=== PATIENT | female | born 1965 | race Caucasian/White ===

== ENCOUNTER 2019-07-14 13:08 | Emergency (ER) | payer OTHER, SELFPAY ==
[2019-07-14 13:16] VITALS: BP 118/71; PULSE 63; RESP 16; TEMP 36.4; O2SAT 100
--- NOTE | 2019-07-14 14:29 | ED.GENADULT ---
HPI - General Adult General Chief complaint: Upper Respiratory Infection Stated complaint: sinus issues Time Seen by Provider: 07/14/19 14:29 Source: patient and RN notes reviewed Mode of arrival: ambulatory Limitations: no limitations History of Present Illness HPI narrative: 54-year-old female presents with complaints of upper respiratory infection, facial congestion, facial pain, cough, and intermittent headaches (not the worst of her life) for the past 14 days. Tylenol cold and sinus with little relief. No facial swelling. Dry cough and intermittent productive cough (yellow phlegm). Nasal congestion and rhinorrhea. No chest pain or shortness of breath. No exacerbating factors. Denies fever or chills. Denies nausea, vomiting, and abdominal pain. Tolerating po intake well. Remains active. Some parts of this dictation were generated by voice recognition software and may contain typographical and/or grammatical inaccuracies. Related Data Home Medications Medication Instructions Recorded Confirmed levothyroxine [Synthroid] 07/14/19 spironolactone 07/14/19 Allergies Allergy/AdvReac Type Severity Reaction Status Date / Time No Known Allergies Allergy Unknown Unverified 07/16/16 12:23 Review of Systems Review of Systems: Narrative: CONSTITUTIONAL: Denies fever, chills, sweats. EYES: Denies visual changes, redness, discharge. ENT: Complains of rhinorrhea, congestion. Denies otalgia, sore throat. CARDIOVASCULAR: Denies chest pain, palpitations, edema. RESPIRATORY: Denies dyspnea, wheezing. Complains of dry cough, intermittent productive. GASTROINTESTINAL: Denies abdominal pain, nausea, vomiting, diarrhea. GENITOURINARY: Denies dysuria, hematuria, abnormal discharge. SKIN: Denies rash or itching. MUSCULOSKELETAL: Denies acute back pain, joint pain, or myalgia. NEUROLOGIC: Denies numbness or focal weakness. Complains of intermittent FOSS. PSYCHIATRIC: Denies anxiety or depression. All systems reviewed & are unremarkable except as noted in HPI and below. [facility] Past Medical History Medical History (Updated 07/15/19 @ 00:00 by Yumiko Daley) Hypothyroidism Menopause Surgical History Surgical History (Updated 07/14/19 @ 14:39 by RAYRAY Garzon) History of cholecystectomy Family History Family History (Updated 07/14/19 @ 14:39 by RAYRYA Garzon) Father Hypertension Social History Social History (Updated 07/14/19 @ 14:40 by RAYRAY Garzon) Smoking status: Never smoker Second hand tobacco smoke exposure: No Alcohol intake: never Substance use: never Living arrangements: with family Occupation/Education: occupation 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 There is no relevant family history pertinent to the presenting complaint. Exam Narrative: Exam Narrative: GENERAL: This is a well-nourished, well-developed patient, in no apparent distress. Talks in full sentences and ambulates with steady gait without dyspnea. HEAD: normocephalic, atraumatic. EYES: PERRL. Sclera clear/white. Vision is grossly intact. EARS: External ears normal, auditory canals clear and without drainage, TMs normal without perforation. Hearing grossly intact. NOSE: External nose normal with no obvious nasal discharge, nares with moderate redness and enlarged turbinates, clear rhinorrhea. SINUSES: Moderate tenderness upon palpation to maxillary sinus. THROAT: Mucous membranes moist, posterior pharynx with PND, mild erythema, no exudate, and normal tonsils. No drainage, no concern for Peritonsillar abscess. No drooling, trismus, or neck swelling. NECK: Neck supple, non-tender without lymphadenopathy, masses or thyromegaly. CARDIOVASCULAR: Regular rate and rhythm without murmurs, gallop
== END 2019-07-14 14:44 | disposition home or self-care (01) ==
PROVIDERS: Emergency Provider Nurse Practitioner Family
DX: J01.00 Acute maxillary sinusitis, unspecified (principal); E03.9 Hypothyroidism, unspecified
CPT/HCPCS: 99213; G0463

== ENCOUNTER 2024-08-14 13:00 | Outpatient (RCR) | payer OTHER, SELFPAY ==
--- NOTE | 2024-05-21 18:10 | BUSTOPEVAL1 ---
Assessment and note entered by Citlaly Garza, [employer] Evaluation Information Assessment Status Evaluation Diagnosis Brain Tumor D49.6 Other ICD-10 Condition Codes ( R41.841 Cognitive-communication deficits ST) Subjective Information Patient was referred for a skilled ST evaluation due to increased difficulty with memory along with a brain tumor found resulting in a craniotomy in April of 2024. Post craniotomy the patient was transferred to [facility] and was there for around one week. While there she participated in speech therapy and they were addressing attention, comprehension, repetition, naming, memory, calculations, similarities/ differences and judgement with current cognitive status determined as moderate-severely impaired. The patient was then living with her family but recently was moved to an assisted living facility due to safety problems. Patient was then referred for an outpatient skilled ST evaluation due to ongoing difficulties in various cognitive- communication areas impacting patient's overall abilities to complete daily activities safely along with overall communication abilities. Patient and son reported that they have noticed changes in cognitive skills for the past 6 months. The Mini Mental State Examination (MMSE) was administered during the evaluation along with the use of the [facility] Adult Language Evaluation. Concerns were noted within areas of auditory comprehension, reading comprehension, verbal expression along with a score of 18/30 on the MMSE indicating a moderate degree of impairment. Results are below. Reported Pain Level Pain Score 0: Self Report Assessment ST Clinical Summary Patient was referred for a skilled ST evaluation due to continued difficulties with cognitive- communication skills post craniotomy due to a brain tumor. The patient's son also reported that over the past 6 months the patient has been presenting with a cognitive decline and was also diagnosed with Alzheimer's. Post craniotomy the patient was admitted to [facility] for 1 week and then transferred home with family. She recently moved to an assisted living facility due to safety concerns with elopement and medication management. Throughout the evaluation the patient presented with word retrieval difficulties, immediate and delayed memory impairments, along with difficulty with orientation skills. The patient had difficulty attempting to answer question regarding recent care and medical history. The MMSE was administered with a score of 18/30 indicating a moderate degree of impairment with cognitive skills. The [place] Adult Language Evaluation was given during the evaluation with difficulties noted in complex yes/no questions, functional mathematical skills, visual spatial skills, 3 step directions, moderate paragraph retention, 8-10 word reading comprehension, functional reading activities, answering wh questions, sentence formation when given a target word, divergent naming skills, sorting/categorizing and sequencing items. Recommendation for skilled ST treatment to target these areas of deficits to improve patient 's ability to return to prior level of function with the least amount of assistance. Recommendation for skilled ST treatment 1x/ week for 10 visits to target R41.841 Cognitive- communication deficits and brain tumor D49.6. Plan of Care Interventions Treatment of Speech,Treatment of Language, Treatment for Cognitive Function Treatment Frequency and 1x/week for 10 visits Duration These treatments will address the objective and functional deficits as defined above. The patient will be advanced safely and appropriately in order for the patient to progress towards his/her prior level of function. Additional exercises will be introduced and as well as a comprehensive home exercise program upon discharge, if needed, ?to ensure carryover of functional gains achieved in the clinic. This treatment plan has been reviewed and agreement upon by the patient.
--- NOTE | 2024-07-22 12:22 | STOPPROG ---
Assessment and note entered by Citlaly Garza, DEVELOPMENT TECHNICAL LEAD Evaluation Information Assessment Status Progress Diagnosis Brain Tumor D49.6 Other ICD-10 Condition Codes ( R41.841 Cognitive-communication deficits ST) Onset 04-16-24 Subjective Information Patient was referred for a skilled ST evaluation due to increased difficulty with memory along with a brain tumor found resulting in a craniotomy in April of 2024. Post craniotomy the patient was transferred to [facility] and was there for around one week. While there she participated in speech therapy and they were addressing attention, comprehension, repetition, naming, memory, calculations, similarities/ differences and judgement with cognitive status determined as moderate-severely impaired at that time. The patient was then living with her family but was moved to a memory care living facility due to safety problems. Patient was then referred for an outpatient skilled ST evaluation due to ongoing difficulties in various cognitive- communication areas impacting patient's overall abilities to complete daily activities safely along with overall communication abilities. Patient and son reported that they have noticed changes in cognitive skills for the past 6 months. Patient has completed a total of [address] treatment sessions since the initial evaluation on 05-20-24. The Mini Mental State Examination (MMSE) was administered during the evaluation along with the use of the [facility] Adult Language Evaluation. Concerns were noted within areas of auditory comprehension, reading comprehension, verbal expression along with a score of 18/30 on the MMSE indicating a moderate degree of impairment. The MMSE was re-administered during the session this date with improvement noted score of 23/30 along with repeated testing through use of [facility] Adult Language Evaluation and cognitive evaluation with results below. Patient and son have noticed improvements in the patient's overall cognitive-communication skills but continue to notice deficits in areas including; memory, time concepts, and organizational skills impacting her ability to function at PLOF with least amount of assistance. Assessment ST Clinical Summary Patient was referred for a skilled ST evaluation due to continued difficulties with cognitive- communication skills post craniotomy due to a brain tumor. The patient's son also reported that over the past 6 months the patient has been presenting with a cognitive decline and was also diagnosed with Alzheimer's. Post craniotomy the patient was admitted to [facility] for 1 week and then transferred home with family. She recently moved to a memory care living facility due to safety concerns with elopement and medication management. The patient has completed a total of [address] treatment sessions since the initial evaluation on 05-20-24 with noted improvements in most areas. MMSE was administered with a score of 23/30 indicating mild deficit at this time (initial evaluation score of 18/30 moderate deficit). Testing was completed through [facility] Adult language evaluation and cognitive evaluation with noted improvements in various areas including; complex yes/no questions, 3 step directions, 8-10 word comprehension skills, simple paragraph recall, functional reading task, wh questions, sentence formation with target word, divergent naming, immediate memory, recent memory, temporal orientation, and complex problem solving skills. Patient continues to demonstrate difficulty in areas including; moderate/complex paragraph retention, 3 word recall with delay in presentation, reading comprehension at the complex sentence level and simple/mod/complex paragraph level, functional reading skills, divergent naming , remote memory, short term memory, and thought organization (sequencing, sorting, categorizing, functional math). Recommendation for skilled ST treatment to target these areas of deficits to improve patient's ability to return to prior level of function with the least amount of assistance. Recommendation for skilled ST treatment 1x/ week for 10 visits to target R41.841 Cognitive-communication deficits and brain tumor D49.6. Plan of Care Interventions Treatment of Speech,Treatment of Language, Treatment for Cognitive Function ST Services Indicated Yes Treatment Frequency and 1x/week for 10 visits Duration These treatments will address the objective and functional deficits as defined above. The patient will be advanced safely and appropriately in order for the patient to progress towards his/her prior level of function. Additional exercises will be introduced and as well as a comprehensive home exercise program upon discharge, if needed, ?to ensure carryover of functional gains achieved in the clinic. This treatment plan has been reviewed and agreement upon by the patient.
--- NOTE | 2024-08-12 17:15 | PCSTNOTE ---
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
--- NOTE | 2024-08-19 11:37 | PCSTNOTE ---
This treatment is being continued on visit number [id number]. Please see documentation on both accounts to view progress. Completed interventions, outcomes, and problems have been marked as Inactive to facilitate the copying of the Care plan routine for recurring accounts.
== END 2024-08-18 23:59 | disposition home or self-care (01) ==
LOC: ANHST 13:00
PROVIDERS: PCP Nurse Practitioner Family; Visit Provider Nurse Practitioner Family
DX: D49.6 Neoplasm of unspecified behavior of brain (principal)
CPT/HCPCS: 92507; 92523; 96125

== ENCOUNTER 2024-10-28 13:30 | Outpatient (RCR) | payer OTHER, SELFPAY ==
--- NOTE | 2024-08-19 11:38 | PCSTNOTE ---
The treatment documented on this account is a continuation of the treatment documented on visit number [id number]. Please see documentation on both accounts to view progress. The Plan of Care has been transitioned and updated within the new V#. I have addressed and agree with the discipline specific Problems, Interventions, and Goals for the current certification period. Completed interventions, outcomes, and problems have been marked as Inactive to facilitate the copying of the Care plan routine for recurring accounts.
--- NOTE | 2024-10-01 15:12 | OPREHPOC ---
Outpatient Therapy Plan of Care This is a Multidisciplinary Plan of Care that may contain components documented by all disciplines (PT, OT, and ST.) ST Problem 1 ST Problem #[address] Goal 1 Goal / Goal Update 1. Patient and family will participate in home programming to promote carryover/generalization of skills to various environments. -Patient and family continue to participate in various activities through home program. Target Visit [address] Problem 2 ST Problem #[address] Goal 1 Goal / Goal Update Verbal expression: Updated: 10/01/24 1. Patient will answer wh questions with 90% accuracy and minimal cues. (Discontinue 10/01/24) 07-22-24: Continue goal with 60% accuracy independently and 90% with moderate cues. Discontinue: 10-01-24 2. Patient will complete sentence formation when given a target word with 90% accuracy and minimal cues. 07-22-24: Goal met with 90% accuracy and minimal cues. (Met/Discontinued 10/01/24) 3. Patient will complete divergent/convergent naming tasks (naming 15+ items within 1-2 minutes) with minimal cues and 90% accuracy. 07-22-24: Continue goal with 50% accuracy, 9 items named in 1 minute. 10/01/24: Continue goal with 70% accuracy 5 items named in 1 minute Target Visit [address] Problem 3 ST Problem #[address] Goal 1 Goal / Goal Update Auditory comprehension: 1. Patient will answer complex yes/no questions with 90% accuracy and minimal cues. 07-22-24: Goal met with 95% accuracy and minimal cues. Goal discontinued 10-01-24 Met 2. Patient will complete moderate complexity paragraph retention tasks (word recall, picture recall tasks) with 90% accuracy and minimal cues. 07-22-24: simple with 66% accuracy and moderate word recall 30% accuracy independently. Continue 10-01-24 with 70% accuracy 2 details. Reading comprehension: 1. Patient will complete reading comprehension tasks at the 8-10 word level with 90% accuracy and minimal cues. 07-22-24: 75-80% accuracy with moderate cues. Continue: 10/01/24: 10 word level 80% accuracy moderate cues. NEW GOALS: 1. Patient will answer remote memory questions ( holidays, seasons, months) and time concept questions with 80% accuracy and minimal cues. 10/01/24 completed with 70% accuracy minimal cues. Target Visit [address] Problem 4 ST Problem #[address] Goal 1 Goal / Goal Update Cognitive: 1. Patient will complete sorting, categorizing, functional organizational tasks with 90% accuracy and minimal cues. 07-22-24: Continue goal. 70% accuracy with max cues 10-01-24: Continue 80% moderate cues. 2. Patient will complete sequencing functional tasks to improve completion of daily activities with 90% accuracy and minimal cues. 07-22-24: Continue goal. 40% accuracy with max cues . 10/01/24: Continue goal. 70% accuracy with moderate cues. Target Visit [address] Goal 2 Goal / Goal Update Added Goal: 10-01-24 1. Patient will recall family names and relation with written aid 80% accuracy minimal cues 2. Patient will utilize compensatory memory book with 80% accuracy minimal cues.
--- NOTE | 2024-10-01 15:14 | STOPREEVAL ---
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 Post craniotomy the patient was transferred to [facility] and was there for around one week. While there she participated in speech therapy and they were addressing attention, comprehension, repetition, naming, memory, calculations, similarities/ differences and judgement with cognitive status determined as moderate-severely impaired at that time. The patient was then living with her family but was moved to a memory care living facility due to safety problems. Patient was then referred for an outpatient skilled ST evaluation due to ongoing difficulties in various cognitive- communication areas impacting patient's overall abilities to complete daily activities safely along with overall communication abilities. Patient and son reported that they have noticed changes in cognitive skills for the past 6 months. Patient has completed a total of [address] treatment sessions since the initial evaluation on 05-20-24. The Mini Mental State Examination (MMSE) was administered during the evaluation along with the use of the [facility] Adult Language Evaluation. Concerns were noted within areas of auditory comprehension, reading comprehension, verbal expression along with a score of 18/30 on the MMSE indicating a moderate degree of impairment. The MMSE was re-administered during the session this date with improvement noted score of 23/30 along with repeated testing through use of [facility] Adult Language Evaluation and cognitive evaluation with results below. Patient and son have noticed improvements in the patient's overall cognitive-communication skills but continue to notice deficits in areas including; memory, time concepts, and organazational skills impacting her ability to function at OF with least amount of assistance. Reported Pain Level Pain Score 0: Self Report Assessment ST Clinical Summary Patient was referred for a skilled ST evaluation due to continued difficulties with cognitive- communication skills post craniotomy due to a brain tumor. The patient's son also reported that over the past 6 months the patient has been presenting with a cognitive decline and was also diagnosed with Alzheimer's. Post craniotomy the patient was admitted to [facility] for 1 week and then transferred home with family. She recently moved to a memory care living facility due to safety concerns with elopement and medication management. The patient has completed a total of [address] treatment sessions since the initial evaluation on 05-20-24 with noted improvements in most areas. MMSE was administered with a score of 23/30 indicating mild deficit at this time, but unchanged since last re -evaluation 07/22/24. (initial evaluation score of 18/30 moderate deficit). Testing was completed through [facility] Adult language evaluation and cognitive evaluation with noted improvements in various areas including; complex yes/no questions, 3 step directions, 8-10 word comprehension skills, simple paragraph recall, functional reading task, wh questions, sentence formation with target word, divergent naming, immediate memory, recent memory, temporal orientation, and complex problem solving skills. Patient continues to demonstrate difficulty in areas including; moderate/complex paragraph retention, 3 word recall with delay in presentation, reading comprehension at the complex sentence level and simple/mod/complex paragraph level, functional reading skills, divergent naming , remote memory, short term memory, and thought organization (sequencing, sorting, categorizing, functional math). Recommendation for skilled ST treatment to target these areas of deficits to improve patient's ability to return to prior level of function with the least amount of assistance. Recommendation for skilled ST treatment 1x/ week for 10 visits to target R41.841 Cognitive-communication deficits and brain tumor D49.6. Discussed with patient and family at this re- evaluation adjusting goals to address remaining deficits and concerns posed by family for memory, orientation, and functional sequencing with planned discharge following 4-5 treatments and a continued HEP. Plan of Care Interventions Treatment for Cognitive Function ST Services Indicated Yes Treatment Frequency and 1x/week for 10 visits Duration These treatments will address the objective and functional deficits as defined above. The patient will be advanced safely and appropriately in order for the patient to progress towards his/her prior level of function. Additional exercises will be introduced and as well as a comprehensive home exercise program upon discharge, if needed, ?to ensure carryover of functional gains achieved in the clinic. This treatment plan has been reviewed and agreement upon by the patient.
--- NOTE | 2024-10-28 14:20 | STOPDC ---
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 The patient's son also reported that over the past 6 months the patient has been presenting with a cognitive decline and was also diagnosed with Alzheimer's. Post craniotomy the patient was admitted to [facility] for 1 week and then transferred home with family. She recently moved to a memory care living facility due to safety concerns with elopement and medication management. The patient has completed a total of [address] treatment sessions since the initial evaluation on 05-20-24 with noted improvements in most areas. MMSE was administered with a score of 23/30 indicating mild deficit at this time, but unchanged since last re -evaluation 07/22/24. (initial evaluation score of 18/30 moderate deficit). Testing was completed through [facility] language evaluation and cognitive evaluation with noted improvements in various areas including; complex yes/no questions, 3 step directions, 8-10 word comprehension skills, simple paragraph recall, functional reading task, wh questions, sentence formation with target word, divergent naming, immediate memory, recent memory, temporal orientation, and complex problem solving skills. Patient continues to demonstrate difficulty in areas including; moderate/complex paragraph retention, 3 word recall with delay in presentation, reading comprehension at the complex sentence level and simple/mod/complex paragraph level, functional reading skills, divergent naming , remote memory, short term memory, and thought organization (sequencing, sorting, categorizing, functional math). Recommendation for skilled ST treatment to target these areas of deficits to improve patient's ability to return to prior level of function with the least amount of assistance. Recommendation for skilled ST treatment 1x/ week for 10 visits to target R41.841 Cognitive-communication deficits and brain tumor D49.6. Discussed with patient and family at this re- evaluation adjusting goals to address remaining deficits and concerns posed by family for memory, orientation, and functional sequencing with planned discharge following 4-5 treatments and a continued HEP. Discharge complete this date with HEP and referral to [facility] clinic Plan of Care ST Services Indicated Yes
== END 2024-10-28 16:48 | disposition home or self-care (01) ==
LOC: ANHST 13:30
PROVIDERS: PCP Nurse Practitioner Family; Visit Provider Nurse Practitioner Family
DX: D49.6 Neoplasm of unspecified behavior of brain (principal)
CPT/HCPCS: 92507; 92523